=== PATIENT | female | born 1960 | race Caucasian/White ===

== ENCOUNTER 2024-07-02 07:03 | Outpatient (CLI) | payer MEDICARE, MEDICAID ==
[2024-07-02 07:38] LABS: ABG BASE EXCESS -0.9 mmol/L (-2.0-3.0); ABG HCO3 23.6 mmol/L (21.0-28.0); ABG OXYGEN SATURATION 92.7 % (94.0-98.0); ABG PCO2 (T) 38.7 mmHg (32.0-45.0); ABG PH (T) 7.403 (7.350-7.450); ABG PO2 (T) 67.3 mmHg (83.0-108.0); ALLEN'S TEST POSITIVE; FCOHb 3.3 % (0.5-1.5); FLOW 3 L/min; FMetHb 0.3 % (0.0-1.5); FO2Hb 89.4 % (94.0-98.0); MODE RESUS BAG
[2024-07-02 08:07] VITALS: PULSE 90; RESP 18; O2SAT 92
[2024-07-02 08:41] VITALS: PULSE 92; RESP 18
== END 2024-07-02 23:59 | disposition home or self-care (01) ==
LOC: RT 07:03
PROVIDERS: ATTEND Nurse Practitioner Family
DX: J44.1 Chronic obstructive pulmonary disease with (acute) exacerbation (principal)
CPT/HCPCS: 36600; 82803; 85018; 94060; 94760